=== PATIENT | female | born 1995 | race Hispanic/Latino ===

== ENCOUNTER 2017-12-04 13:43 | Observation (INO) | payer BC ==
[2017-12-04] MEDS ORDERED: ONDANSETRON 4 MG/2 ML VIAL IV PRN (14:09)
[2017-12-04] MEDS ORDERED: ACETAMINOPHEN 500 MG TAB PO PRN (14:09)
[2017-12-04] MEDS ORDERED: ALBUTEROL 2.5 MG/3 ML NEB SOL NEB PRN (14:09)
--- NOTE | 2017-12-04 14:46 | P.HP ---
Certification for Inpatient Patient admitted to: Observation With expected LOS: <2 Midnights Patient will require the following post-hospital care: None Practitioner: I am a practitioner with admitting privileges, knowledge of patient current condition, hospital course, and medical plan of care. Services: Services provided to patient in accordance with Admission requirements found in Title 42 Section 412.3 of the Code of Federal Regulations Patient History Date of Service: 12/04/17 Primary Care Provider: SHOOTER'S HELPER-Dr. House; ENT-Dr. Bangura Reason for admission: Abdominal pain, shortness of breath History of Present Illness: 22-year-old female presented the hospital after she was transferred from [facility] after she was found to have left pulmonary embolism. The patient reports that she start to have some abdominal pain about 5 a.m. this morning. It is mainly to the left flank. It radiated to the left lower chest wall. It was associated with some shortness of breath. She reported that previous Monday she had some pain similar to the right side. She thought it was gas. She took medication for this. It resolved. Patient did report some nausea. The patient came to the ER for further evaluation. The patient was seen at [facility]. A workup included CBC, BMP, urine which were unremarkable. A CT angiogram was done showing pulmonary embolism to the left side. Due to the nature of finding the patient was admitted for observation for further analysis. The patient was given Lovenox prior to coming to the hospital. When I evaluated the patient she was without any significant shortness of breath. No chest pain noted. She was without any nausea, vomiting. Patient reports a history of asthma and allergies. There is a family history of blood clots. She reports a grandmother on the maternal side had some. The patient has not done any extensive traveling. Traveling only to [place]. Patient does not smoke. She does use control medication. Allergies lemon Allergy (Mild, Verified 12/04/17 14:26) Nausea/Vomiting green tea Adverse Reaction (Verified 12/04/17 14:27) Nausea/Vomiting Home medications list reviewed: Yes Home Medications: Albuterol Sulfate [Proair Hfa] 3 puff IH BID 12/04/17 Azelastine/Fluticasone [Dymista Nasal [place]] 1 sprays BELLE DAILY 12/04/17 Beclomethasone Dipropionate [Qvar Redihaler] 1 puff IH BID 12/04/17 Norgestimate-Ethinyl Estradiol [Mononessa 28 Tablet] 1 tab PO DAILY 12/04/17 - Past Medical/Surgical History Has patient received pneumonia vaccine in the past: No Diabetic: No -: Asthma -: Seasonal allergies -: Eczema -: Obesity -: Nasal surgery -: Tonsillectomy Psychosocial/ Personal History: The patient is single. 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 She has no children. She has never been . - Family History Mother -: Other (see notes) (Grandmother had history of blood clots.) - Social History Smoking Status: Never smoker Alcohol use: Yes CD- Drugs: No Caffeine use: Yes Place of Residence: Home Review of Systems General: As per HPI Eyes: Unremarkable ENT: Unremarkable Respiratory: Shortness of Breath, As per HPI Cardiovascular: Unremarkable Gastrointestinal: Nausea, Abdominal Pain, As per HPI Genitourinary: Unremarkable Musculoskeletal: Back Pain, As per HPI Integumentary: Unremarkable Neurological: Unremarkable Lymphatics: Unremarkable Physical Examination - Vital Signs Temperature: 98.2 F Blood Pressure: 110/64 Pulse: 77 Respirations: 16 Pulse Ox (%): 96 - Physical Exam General: Alert, In no apparent distress, Oriented x3, Cooperative HEENT: Atraumatic, Normocephalic, PERRLA, Mucous membr. moist/pink Neck: Supple, No Thyromegaly Respiratory: Clear to auscultation bilaterally, Normal air movement Cardiovascular: Normal pulses, Regular rate/rhythm Gastrointestinal: Normal bowel sounds, Soft and benign, Non-distended, No ascites, No tenderness, No masses, No rebound, No guarding Musculoskeletal: No contractures, No erythema, No tenderness, No warmth Integumentary: No tenderness/swelling, No erythema, No warmth, No cyanosis Neurological: Normal speech, Normal strength at 5/5 x4 extr, Normal tone, Normal affect Lymphatics: No axilla or inguinal lymphadenopathy Assessment and Plan - Problems (Diagnosis) (1) Pulmonary embolism Current Visit: Yes Status: Acute Plan: CT scan showed left pulmonary embolism. Patient has been given Lovenox. Will continue with Lovenox. Will check echocardiogram. Will check lab for protein C and S, factor 5 Leiden, autoimmune disease. Will consult pulmonology to further assess. Patient will likely need Eliquis or Xarelto at discharge. Anticipate discharge tomorrow after workup has been done. Qualifiers: Pulmonary embolism type: other Chronicity: acute Acute cor pulmonale presence: without acute cor pulmonale Qualified Code(s): I26.99 - Other pulmonary embolism without acute cor pulmonale (2) Asthma Current Visit: Yes Status: Chronic Plan: Currently stable this time. Will provide medication. Qualifiers: Asthma severity: mild Asthma persistence: intermittent Asthma complication type: unspecified Qualified Code(s): J45.20 - Mild intermittent asthma, uncomplicated (3) GERD (gastroesophageal reflux disease) Current Visit: Yes Status: Suspected Plan: Will provide medication. Qualifiers: Esophagitis presence: esophagitis presence not specified Qualified Code(s) : K21.9 - Gastro-esophageal reflux disease without esophagitis (4) Obesity Current Visit: Yes Status: Chronic Plan: Will provide education on lifestyle modification Qualifiers: Obesity type: due to excess calories Obesity classification: adult class 1 (BMI 30 - 34.9) Serious obesity comorbidity presence: with serious comorbidity Body mass index: BMI 34.0-34.9 Qualified Code(s): E66.09 - Other obesity due to excess calories; Z68.34 - Body mass index (BMI) 34.0-34.9, adult; Z68.34 - Body mass index (BMI) 34.0-34.9, adult Discharge Plan: Home Plan to discharge in: 24 Hours - Advance Directives Does patient have a Living Will: No Does patient have a Durable POA for Healthcare: No - Code Status/Comfort Care Code Status Assessed: Yes Time Spent Managing Pts Care (In Minutes): 55
[2017-12-04] MEDS ORDERED: PNEUMOCOCCAL VACCINE 0.5 ML IMVAC ONE (15:00)
[2017-12-04] MEDS ORDERED: ENOXAPARIN 80 MG/0.8 ML SQ SCH (15:00)
[2017-12-04 15:06] LABS: Absolute Monocytes 0.5 K/uL (0.1-1.3); Absolute Neutrophil 5.7 K/uL (1.8-8.0); Basophils % 0.6 % (0-1.3); Eosinophils % 4.5 % (0-4.4); Hematocrit 38.4 % (36.0-45.0); Lymphocytes % 23.5 % (15.3-44.8); MCH 31.1 pg (27.0-35.0); MPV 7.8 fL (7.6-11.3); Monocytes % 5.3 % (3.3-12.3); RBC Red Blood Cell Count 4.27 M/uL (3.86-4.86)
[2017-12-04 15:08] VITALS: BMI 34.7
--- NOTE | 2017-12-04 16:06 | RAD REPORT ---
EXAM DESCRIPTION: RAD - Chest Pa And Lat (2 Views) - 12/04/2017 3:19 pm CLINICAL HISTORY: Shortness of breath, history of pulmonary embolism COMPARISON: None. TECHNIQUE: PA and lateral views of the chest were obtained. FINDINGS: The lungs are clear of failure, infiltrate or mass. No area of abnormally diminished lung parenchymal attenuation seen. Heart size is normal and central vasculature is within normal limits. No pleural effusion or pneumothorax seen. No acute bony finding noted. No aortic abnormality. IMPRESSION: No acute cardiopulmonary process.
[2017-12-04 16:10] LABS: CKMB Creatine Kinase MB 0.8 ng/ml (0.3-4.0)
[2017-12-04 16:12] LABS: ALT/SGPT 16 IU/L (10-60); AST/SGOT 17 IU/L (10-42); Albumin 3.9 g/dL (3.2-5.5); Alkaline Phosphatase 38 IU/L (42-121); BUN Blood Urea Nitrogen 9 mg/dL (6-20); Bicarbonate 24 mEq/L (21-31); Bilirubin Total 0.5 mg/dL (0.3-1.2); Glomerular Filtration Rate > 90 mL/min (=/>90); Glucose Level 82 mg/dL (65-120); Magnesium 1.8 mg/dL (1.8-2.5); Potassium 3.3 mEq/L (3.6-5.0); Protein, Total 6.7 g/dL (6.0-8.3); Sodium Level 136 mEq/L (135-145)
--- NOTE | 2017-12-04 16:43 | ECHO ---
HEIGHT: 5 ft 1 in WEIGHT: 184 lb 0 oz DATE OF STUDY: 12/04/[address]: Thiago Freeman DO 2-DIMENSIONAL: YES M.MODE: YES DOPPLER: YES COLOR FLOW: YES TDS: PORTABLE: DEFINITY: BUBBLE STUDY: DIAGNOSIS: PULMONARY EMBOLUS CARDIAC HISTORY: CATHERIZATION: NO SURGERY: NO PROSTHETIC VALVE: NO PACEMAKER: NO MEASUREMENTS (cm) DIASTOLIC (NORMALS) SYSTOLIC (NORMALS) IVSd 0.8 (0.6-1.2) LA Diam 2.7 (1.9-4.0) LVEF 59% LVIDd 4.1 (3.5-5.7) LVIDs 2.8 (2.0-3.5) %FS 31% LVPWd 0.9 (0.6-1.2) Ao Diam 2.6 (2.0-3.7) 2 DIMENSIONAL ASSESSMENT: RIGHT ATRIUM: NORMAL LEFT ATRIUM: NORMAL RIGHT VENTRICLE: NORMAL LEFT VENTRICLE: NORMAL TRICUSPID VALVE: NORMAL MITRAL VALVE: NORMAL PULMONIC VALVE: NORMAL AORTIC VALVE: NORMAL PERICARDIAL EFFUSION: NONE AORTIC ROOT: NORMAL LEFT VENTRICULAR WALL MOTION: NORMAL DOPPLER/COLOR FLOW: NORMAL COMMENTS: NORMAL 2-DIMENSIONAL ECHOCARDIOGRAM WITH DOPPLER. TECHNOLOGIST: WENDY NUÑEZ
[2017-12-04] MEDS ORDERED: MAGNESIUM SULFATE 1 gm IVPB 1 GM/100 ML BAG IV ONE (16:56)
[2017-12-04] MEDS ORDERED: HYDROCODONE/APAP 7.5/325 MG TAB PO PRN (17:24)
[2017-12-04] MEDS ORDERED: TRAMADOL HCL 50 MG TAB PO PRN (17:24)
[2017-12-04] MEDS ORDERED: POTASSIUM CL SA 10 MEQ TAB PO ONE (17:32)
[2017-12-04] MEDS ORDERED: NA CHLORIDE 0.9% 250 ML IV SCH (19:00)
[2017-12-04] MEDS: FAMOTIDINE 20 MG TAB PO SCH (20:51)
[2017-12-04] MEDS: DULERA 100/5 (MOMETASONE/FORMOTEROL) INHALER IH SCH (21:00)
[2017-12-04 21:41] LABS: Urine Appearance CLEAR; Urine Bilirubin NEGATIVE (NEG); Urine Blood NEGATIVE (NEG); Urine Color YELLOW; Urine Glucose NEGATIVE (NEG); Urine Protein NEGATIVE (NEG); Urine Urobilinogen 0.2 mg/dL (0.2-1.0); Urine pH 7.5 (5.0-7.0)
[2017-12-04 21:44] LABS: Urine Microscopic Reflex NO UMIC
[2017-12-04 22:45] LABS: CKMB Creatine Kinase MB 0.9 ng/ml (0.3-4.0)
[2017-12-05] MEDS ORDERED: POTASSIUM 25 MEQ EFFERV TAB PO ONE (01:30)
[2017-12-05 02:26] VITALS: O2SAT 98
[2017-12-05] MEDS ORDERED: ENOXAPARIN 80 MG/0.8 ML SQ SCH (06:00)
[2017-12-05 06:24] LABS: CKMB Creatine Kinase MB 0.6 ng/ml (0.3-4.0)
[2017-12-05 06:25] LABS: BUN Blood Urea Nitrogen 10 mg/dL (6-20); Bicarbonate 26 mEq/L (21-31); Glomerular Filtration Rate > 90 mL/min (=/>90); Glucose Level 88 mg/dL (65-120); HDL Cholesterol 43 mg/dL (29-89); LDL Cholesterol, Calculated 84 (<130); Potassium 4.2 mEq/L (3.6-5.0); Sodium Level 135 mEq/L (135-145)
--- NOTE | 2017-12-05 08:23 | P.CNS ---
Date of Consult: 12/05/17 Primary Care Provider: FORMING ROLL OPERATOR HEAVY DUTY-Dr. House; ENT-Dr. 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 she her pain got worse started complaining of some shortness of breath she had some an episode during a Easter tiny mid way she has some shortness of breath pain in the right side that resolved and about 24 hr apart from asthma THAT THERE IS NO OTHER SIGNIFICANT PAST MEDICAL HISTORY PATIENT WENT TO [facility] emergency room CT scan of the chest showed a very small filling defect noted in 1 of the branches of the left lower lobe suspicious for pulmonary embolism no other filling defects demonstrated CT scan of the abdomen was unremarkable patient is on control pills Allergies lemon Allergy (Mild, Verified 12/04/17 14:26) Nausea/Vomiting green tea Adverse Reaction (Verified 12/04/17 14:27) Nausea/Vomiting Home Medications: Albuterol Sulfate [Proair Hfa] 2 puff IH BID 12/04/17 Azelastine/Fluticasone [Dymista Nasal [place]] 1 sprays BELLE DAILY 12/04/17 Beclomethasone Dipropionate [Qvar Redihaler] 1 puff IH BID 12/04/17 Norgestimate-Ethinyl Estradiol [Mononessa 28 Tablet] 1 tab PO DAILY 12/04/17 Albuterol Sulfate [Proair Hfa] 2 puff IH Q6H PRN 12/05/17 - Past Medical/Surgical History Diabetic: No -: Asthma -: Seasonal allergies -: Eczema -: Obesity -: Nasal surgery -: Tonsillectomy Psychosocial/ Personal History: The patient is single. 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 She has no children. She has never been . - Family History Mother Medical History: Other (see notes) (Grandmother had history of blood clots.) - Social History Alcohol use: Yes CD- Drugs: No Caffeine use: Yes Place of Residence: Home Review of Systems 10-point ROS is otherwise unremarkable Physical Examination Temp Pulse Resp BP Pulse Ox 97.6 F 77 17 113/53 L 96 12/05/17 04:00 12/05/17 04:00 12/05/17 04:00 12/05/17 04:00 12/05/17 04:00 General: Alert, Oriented x3 Neck: Supple Respiratory: Clear to auscultation bilaterally Cardiovascular: No edema, Regular rate/rhythm Gastrointestinal: Normal bowel sounds, Soft and benign Laboratory Data (last 24 hrs) 12/05/17 05:28: Troponin I < 0.03 12/05/17 05:28: Sodium 135, Potassium 4.2, BUN 10, Creatinine 0.66, Glucose 88, Magnesium 2.0, Triglycerides 122, Cholesterol 151, HDL Cholesterol 43, Cholesterol/HDL Ratio 3.51 12/04/17 21:54: Potassium 3.9 12/04/17 21:54: Troponin I 0.05 H 12/04/17 14:50: Sodium 136, Potassium 3.3 L, BUN 9, Creatinine 0.58, Glucose 82 , Magnesium 1.8, Total Bilirubin 0.5, AST 17, ALT 16, Alkaline Phosphatase 38 L 12/04/17 14:50: WBC 8.6, Hgb 13.3, Hct 38.4, Plt Count 346 12/04/17 14:50: Troponin I < 0.03 - Problems (1) Pulmonary embolism Current Visit: Yes Status: Acute Plan: Patient is 22 years of age admitted with some shortness of breath chest discomfort lower abdominal discomfort this is a suspicion of pulmonary embolism on the left side small filling defect is noted this scan he as indeterminate patient has normal echo 0 labs vital signs are all stable extensive workup has been ordered I have advised the patient that the include control pills would be a contraindication I recommended this time 3 months of anticoagulation patient can be discharged home on Eliquis 10 mg twice a day for for 7 days then convert to 5 mg twice a day total duration 3 months and and probably stop she needs to follow-up with her guitar technician regarding control Qualifiers: Pulmonary embolism type: other Chronicity: acute Acute cor pulmonale presence: without acute cor pulmonale Qualified Code(s): I26.99 - Other pulmonary embolism without acute cor pulmonale (2) Asthma Current Visit: Yes Status: Chronic Plan: Patient has a history of mild intermittent asthma she has been on Q HUSSAIN since a child which has been refill by ENT doctor it appears to be well controlled she denies any nocturnal symptoms and takes the medication twice a day no recent exacerbations this will all need to be reviewed as an outpatient Qualifiers: Asthma severity: mild Asthma persistence: intermittent Asthma complication type: unspecified Qualified Code(s): J45.20 - Mild intermittent asthma, uncomplicated
[2017-12-05] MEDS: FAMOTIDINE 20 MG TAB PO SCH (08:40)
[2017-12-05] MEDS: DULERA 100/5 (MOMETASONE/FORMOTEROL) INHALER IH SCH (09:00)
[2017-12-05 09:06] VITALS: BP 109/66; TEMP 97.9
--- NOTE | 2017-12-05 10:00 | P.DS ---
Admission Date: 12/04/17 Discharge Date: 12/05/17 Primary Care Provider: PROFESSOR OF THEATRE-Dr. House; ENT-Dr. Bangura Disposition: ROUTINE DISCHARGE Discharge Condition: GOOD Reason for Admission: Pulmonary embolus Consultations: Pulmonology-Dr. Velez Procedures: Echocardiogram: Ejection fraction 59% otherwise unremarkable. CT scan: Small filling defect to the left lower lobe branch suspicious for pulmonary embolism. - Problems (1) Pulmonary embolism Onset Date: 12/05/17 Current Visit: Yes Status: Acute Qualifiers: Pulmonary embolism type: other Chronicity: acute Acute cor pulmonale presence: without acute cor pulmonale Qualified Code(s): I26.99 - Other pulmonary embolism without acute cor pulmonale (2) Asthma Onset Date: 12/05/17 Current Visit: Yes Status: Chronic Qualifiers: Asthma severity: mild Asthma persistence: intermittent Asthma complication type: unspecified Qualified Code(s): J45.20 - Mild intermittent asthma, uncomplicated (3) GERD (gastroesophageal reflux disease) Onset Date: 12/05/17 Current Visit: Yes Status: Suspected Qualifiers: Esophagitis presence: esophagitis presence not specified Qualified Code(s) : K21.9 - Gastro-esophageal reflux disease without esophagitis (4) Obesity Onset Date: 12/05/17 Current Visit: Yes Status: Chronic Qualifiers: Obesity type: due to excess calories Obesity classification: adult class 1 (BMI 30 - 34.9) Serious obesity comorbidity presence: with serious comorbidity Body mass index: BMI 34.0-34.9 Qualified Code(s): E66.09 - Other obesity due to excess calories; Z68.34 - Body mass index (BMI) 34.0-34.9, adult; Z68.34 - Body mass index (BMI) 34.0-34.9, adult Brief History of Present Illness: 22-year-old female presented the hospital after she was transferred from [facility] after she was found to have left pulmonary embolism. The patient reports that she start to have some abdominal pain about 5 a.m. this morning. It is mainly to the left flank. It radiated to the left lower chest wall. It was associated with some shortness of breath. She reported that previous Monday she had some pain similar to the right side. She thought it was gas. She took medication for this. It resolved. Patient did report some nausea. The patient came to the ER for further evaluation. The patient was seen at [place] [facility]. A workup included CBC, BMP, urine which were unremarkable. A CT angiogram was done showing pulmonary embolism to the left side. Due to the nature of finding the patient was admitted for observation for further analysis. The patient was given Lovenox prior to coming to the hospital. When I evaluated the patient she was without any significant shortness of breath. No chest pain noted. She was without any nausea, vomiting. Patient reports a history of asthma and allergies. There is a family history of blood clots. She reports a grandmother on the maternal side had some. The patient has not done any extensive traveling. Traveling only to [place]. Patient does not smoke. She does use control medication. Hospital Course: Patient found to have pulmonary embolism. CT scan showed small filling defect to the left lower lobe branch. Patient admitted for treatment. Patient evaluated by pulmonology. Echocardiogram unremarkable. At discharge patient will continue with Eliquis 10 mg 1 pill twice daily for 7 days then 5 mg 1 pill twice daily for 3 months. Recommendation is for the patient follow up with pulmonology in 2-4 weeks to monitor her care. Recommendation is to discontinue her control medication. A D-dimer will be obtained to get a baseline level. Recommendation is to recheck lab-CBC in 2-4 weeks to monitor progress. Patient has asthma. She may continue with her medication. Patient has seasonal allergies. She may continue with her medication. Patient will need a follow up with gynecology to address her control needs. Her control medication has been discontinued. Patient will need to use another form of control. Suspect patient may have underlying GERD. Patient may take Nexium over the counter if needed. Vital Signs/Physical Exam: Temp Pulse Resp BP Pulse Ox 97.9 F 68 16 109/66 97 12/05/17 08:00 12/05/17 08:00 12/05/17 08:00 12/05/17 08:00 12/05/17 08:00 General: Alert, In no apparent distress, Oriented x3, Cooperative HEENT: Atraumatic, Mucous membr. moist/pink Neck: Supple, No Thyromegaly Respiratory: Clear to auscultation bilaterally, Normal air movement Cardiovascular: Normal pulses, Regular rate/rhythm Gastrointestinal: Normal bowel sounds, Soft and benign, Non-distended, No masses , No rebound, No guarding Musculoskeletal: No erythema, No tenderness, No warmth Integumentary: No erythema, No warmth, No cyanosis Neurological: Normal speech, Normal strength at 5/5 x4 extr, Normal tone, Normal affect Laboratory Data at Discharge: WBC 8.6 K/uL (4.3-10.9) 12/04/17 14:50 Hgb 13.3 g/dL (12.0-15.0) 12/04/17 14:50 Hct 38.4 % (36.0-45.0) 12/04/17 14:50 Plt Count 346 K/uL (152-406) 12/04/17 14:50 Sodium 135 mEq/L (135-145) 12/05/17 05:28 Potassium 4.2 mEq/L (3.6-5.0) 12/05/17 05:28 BUN 10 mg/dL (6-20) 12/05/17 05:28 Creatinine 0.66 mg/dL (0.44-1.00) 12/05/17 05:28 Glucose 88 mg/dL (65-120) 12/05/17 05:28 Magnesium 2.0 mg/dL (1.8-2.5) 12/05/17 05:28 Total Bilirubin 0.5 mg/dL (0.3-1.2) 12/04/17 14:50 AST 17 IU/L (10-42) 12/04/17 14:50 ALT 16 IU/L (10-60) 12/04/17 14:50 Alkaline Phosphatase 38 IU/L (42-121) L 12/04/17 14:50 Troponin I < 0.03 ng/mL (<0.03) 12/05/17 05:28 Triglycerides 122 mg/dL (35-160) 12/05/17 05:28 Cholesterol 151 mg/dL (<200) 12/05/17 05:28 HDL Cholesterol 43 mg/dL (29-89) 12/05/17 05:28 Cholesterol/HDL Ratio 3.51 12/05/17 05:28 Home Medications: Albuterol Sulfate [Proair Hfa] 2 puff IH BID 12/04/17 Azelastine/Fluticasone [Dymista Nasal [place]] 1 sprays BELLE DAILY 12/04/17 Beclomethasone Dipropionate [Qvar Redihaler] 1 puff IH BID 12/04/17 Albuterol Sulfate [Proair Hfa] 2 puff IH Q6H PRN 12/05/17 Apixaban [Eliquis] 5 mg PO SEECOM #70 tablet 12/05/17 New Medications: Apixaban [Eliquis] 5 mg PO SEECOM #70 tablet Patient Discharge Instructions: 1. Patient will need to follow up with her PCP in 1 week to follow up this hospitalization. 2. Patient found to have pulmonary embolism. Patient evaluated by pulmonology. Echocardiogram unremarkable. At discharge patient will continue with Eliquis 10 mg 1 pill twice daily for 7 days then 5 mg 1 pill twice daily for 3 months. Recommendation is for the patient follow up with pulmonology in 2-4 weeks to monitor her care. Recommendation is to discontinue her control medication. Recommendation is to recheck CBC in 2-4 weeks to monitor progress. 3. Patient has asthma. She may continue with her medication. 4. Patient has seasonal allergies. She may continue with her medication. 5. Patient will need a follow up with gynecology to address her control needs. Her control medication has been discontinued. Patient will need to use another form of control. 6. Patient may have underlying GERD. Patient may take [id number] Nexium to be use as needed. Diet: AHA Activity: Ad whitney Time spent managing pt's care (in minutes): 55
[2017-12-06 12:25] LABS: Protein C Antigen 103 % (70-140)
[2017-12-07 04:18] LABS: Anti-Cardiolipin IgA Antibody <11 APL (<=11)
[2017-12-07 13:26] LABS: Prothrombin Gene Analysis Test REPORT
== END 2017-12-05 12:36 | disposition home or self-care (01) ==
LOC: 4TH 13:52
PROVIDERS: ADMIT Family Medicine; ATTEND Family Medicine
DX: I74.9 Embolism and thrombosis of unspecified artery (principal); J45.909 Unspecified asthma, uncomplicated; E66.9 Obesity, unspecified; Z68.34 Body mass index [BMI] 34.0-34.9, adult; J30.2 Other seasonal allergic rhinitis
CPT/HCPCS: 36415; 71046; 80048; 80053; 80061; 81003; 81025; 81240; 81241; 82550; 82553; 83735; 84132; 84439; 84443; 84484; 85025; 85300; 85301; 85302; 85305; 85306; 85379; 86038; 86147; 86225; 93306; G0378; J1650; J3475; J7606

== ENCOUNTER 2017-12-13 01:07 | Emergency (ER) | payer BC ==
[2017-12-13] MEDS ORDERED: NA CHLORIDE 0.9% 1,000 ML ONE (02:49)
[2017-12-13 02:54] LABS: Absolute Lymphocytes (CBC) 1.8 K/uL (0.7-4.9); Absolute Monocytes 0.7 K/uL (0.1-1.3); Absolute Neutrophil 4.9 K/uL (1.8-8.0); Hematocrit 36.5 % (36.0-45.0); Lymphocytes % 23.2 % (15.3-44.8); MCH 31.4 pg (27.0-35.0); MCV 90.5 fL (80-100); MPV 7.9 fL (7.6-11.3); Monocytes % 9.1 % (3.3-12.3); Protime INR 1.43; RBC Red Blood Cell Count 4.03 M/uL (3.86-4.86)
[2017-12-13 03:03] LABS: Bicarbonate 29 mEq/L (21-31); Glucose Level 97 mg/dL (65-120); Potassium 3.6 mEq/L (3.6-5.0); Sodium Level 139 mEq/L (135-145)
[2017-12-13 03:09] LABS: ALT/SGPT 17 IU/L (10-60); AST/SGOT 14 IU/L (10-42); Albumin 3.9 g/dL (3.2-5.5); Alkaline Phosphatase 44 IU/L (42-121); BUN Blood Urea Nitrogen 10 mg/dL (6-20); Bilirubin Direct 0.1 mg/dL (0-0.2); Bilirubin Total 0.6 mg/dL (0.3-1.2); Creatine Phosphokinase 40 IU/L (22-269); Glomerular Filtration Rate > 90 mL/min (=/>90); Magnesium 1.7 mg/dL (1.8-2.5); Protein, Total 7.1 g/dL (6.0-8.3)
[2017-12-13 03:12] LABS: CKMB Creatine Kinase MB 0.7 ng/ml (0.3-4.0)
[2017-12-13 03:26] LABS: Urine Glucose NEGATIVE (NEG)
[2017-12-13 03:27] LABS: Urine Blood NEGATIVE (NEG); Urine Protein NEGATIVE (NEG)
--- NOTE | 2017-12-13 04:16 | EDPHYS ---
Physician Documentation [facility] Name: Chel Martel Age: 22 yrs Sex: Female : 1995 Arrival Date: 12/13/2017 Time: 01:12 Bed 16 Private MD: ED Physician Maximo Worley HPI: 12/13 02:36 This 22 yrs old Female presents to ER via Ambulatory with complaints of ember Headache, Chest Pain. 02:36 The patient complains of pain to the forehead, left frontal area and right frontal ember area. The patient describes the headache as aching. 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 - Social history:: Smoking status: Patient/guardian denies using tobacco. - Family history:: not pertinent. ROS: 02:36 Constitutional: Negative for fever, chills, and weight loss, Eyes: Negative for injury, ember pain, redness, and discharge, ENT: Negative for injury, pain, and discharge, Neck: Negative for injury, pain, and swelling, Cardiovascular: Negative for chest pain, palpitations, and edema, Abdomen/GI: Negative for abdominal pain, nausea, vomiting, diarrhea, and constipation, Back: Negative for injury and pain, : Negative for injury, bleeding, discharge, and swelling, MS/Extremity: Negative for injury and deformity, Skin: Negative for injury, rash, and discoloration, Psych: Negative for depression, anxiety, suicide ideation, homicidal ideation, and hallucinations, Allergy/Immunology: Negative for hives, rash, and allergies, Endocrine: Negative for neck swelling, polydipsia, polyuria, polyphagia, and marked weight changes, Hematologic/Lymphatic: Negative for swollen nodes, abnormal bleeding, and unusual bruising. 02:36 Respiratory: Positive for cough, shortness of breath, at rest. 02:36 MS/extremity: Negative for acute changes. Exam: 02:36 Constitutional: This is a well developed, well nourished patient who is awake, alert, ember and in no acute distress. Head/Face: Normocephalic, atraumatic. Eyes: Pupils equal round and reactive to light, extra-ocular motions intact. Lids and lashes normal. Conjunctiva and sclera are non-icteric and not injected. Cornea within normal limits. Periorbital areas with no swelling, redness, or edema. ENT: Nares patent. No nasal discharge, no septal abnormalities noted. Tympanic membranes are normal and external auditory canals are clear. Oropharynx with no redness, swelling, or masses, exudates, or evidence of obstruction, uvula midline. Mucous membranes moist. Neck: Trachea midline, no thyromegaly or masses palpated, and no cervical lymphadenopathy. Supple, full range of motion without nuchal rigidity, or vertebral point tenderness. No Meningismus. Chest/axilla: Normal chest wall appearance and motion. Nontender with no deformity. No lesions are appreciated. Cardiovascular: Regular rate and rhythm with a normal S1 and S2. No gallops, murmurs, or rubs. Normal PMI, no JVD. No pulse deficits. Respiratory: Lungs have equal breath sounds bilaterally, clear to auscultation and percussion. No rales, rhonchi or wheezes noted. No increased work of breathing, no retractions or nasal flaring. Abdomen/GI: Soft, non-tender, with normal bowel sounds. No distension or tympany. No guarding or rebound. No evidence of tenderness throughout. Back: No spinal tenderness. No costovertebral tenderness. Full range of motion. Pelvic Exam: Normal external genitalia. Speculum exam with closed cervical os, no discharge or bleeding noted. Bimanual exam with normal adnexa, no adnexal or cervical motion tenderness. Normal uterus. Female : Normal external genitalia. Skin: Warm, dry with normal turgor. Normal color with no rashes, no lesions, and no evidence of cellulitis. MS/ Extremity: Pulses equal, no cyanosis. Neurovascular intact. Full, normal range of motion. Neuro: Awake and alert, GCS 15, oriented to person, place, time, and situation. Cranial nerves II-XII grossly intact. Motor strength 5/5 in all extremities. Sensory grossly intact. Cerebellar exam normal. Normal gait. Psych: Awake, alert, with orientation to person, place and time. Behavior, mood, and affect are within normal limits. Vital Signs: 01:40 BP 123 / 78; Pulse 89; Resp 19 S; Temp 97.9(O); Pulse Ox 100% on R/A; Weight 83.46 kg jd3 (R); Height 5 ft. 1 in. (154.94 cm) (R); Pain 5/10; 03:37 BP 118 / 74; Pulse 73; Resp 17 S; Pulse Ox 98% on R/A; jd3 05:05 BP 120 / 76; Pulse 77; Resp 18 S; Pulse Ox 98% on R/A; Pain 0/10; jd3 05:52 BP 118 / 73; Pulse 77; Resp 19 S; Pulse Ox 98% on R/A; Pain 0/10; jd3 01:40 Body Mass Index 34.77 (83.46 kg, 154.94 cm) j MDM: 02:33 Patient medically screened. [facility] 02:37 Data reviewed: vital signs, nurses notes, lab test result(s), EKG, radiologic studies, ember CT scan. 12/13 02:23 Order name: Basic Metabolic Panel; Complete Time: 04:09 [facility] 12/13 02:23 Order name: BNP; Complete Time: 04:09 [facility] 12/13 02:23 Order name: CBC with Diff; Complete Time: 04:09 [facility] 12/13 02:23 Order name: Ckmb; Complete Time: 04:09 [facility] 12/13 02:23 Order name: CPK; Complete Time: 04:09 [facility] 12/13 02:23 Order name: LFT's; Complete Time: 04:09 [facility] 12/13 02:23 Order name: Magnesium; Complete Time: 04:09 [facility] 12/13 02:23 Order name: PT-INR; Complete Time: 04:09 [facility] 12/13 02:23 Order name: Ptt, Activated; Complete Time: 04:09 [facility] 12/13 02:23 Order name: Troponin (emerg Dept Use Only); Complete Time: 04:09 [facility] 12/13 02:23 Order name: XRAY Chest (1 view) [facility] 12/13 02:23 Order name: CT Chest For PE Angio [facility] 12/13 03:00 Order name: Urine Dipstick--Ancillary (enter results); Complete Time: 04:09 em1 04/18 03:00 Order name: Urine --Ancillary (enter results); Complete Time: 04:09 [facility] 12/13 02:23 Order name: Urine Test (obtain specimen); Complete Time: 02:58 [facility] 12/13 02:23 Order name: EKG; Complete Time: 02:23 d3 12/13 02:23 Order name: Cardiac monitoring; Complete Time: 02:34 [facility] 12/13 02:23 Order name: EKG - Nurse/Tech; Complete Time: 02:34 d3 12/13 02:23 Order name: IV Saline Lock; Complete Time: 02:47 jd3 12/13 02:23 Order name: Labs collected and sent; Complete Time: 02:47 [facility] 12/13 02:23 Order name: O2 Per Protocol; Complete Time: 02:34 d3 12/13 02:23 Order name: O2 Sat Monitoring; Complete Time: 02:34 [facility] 12/13 02:23 Order name: Urine Dipstick-Ancillary (obtain specimen); Complete Time: 02:58 [facility] 12/13 02:38 Order name: CT Head Brain wo Cont ember Administered Medications: 02:56 Drug: NS 0.9% 1000 ml Route: IV; Rate: 1 bolus; Site: left antecubital; [facility] 06:10 Follow up: Response: No adverse reaction; IV Status: Completed infusion; IV Intake: jd3 1000ml 05:04 Drug: Magnesium Sulfate 1 grams Route: IVPB; Infused Over: 1 hrs; Site: left [facility] antecubital; 06:09 Follow up: Response: No adverse reaction; IV Status: Completed infusion j Disposition: 12/13/17 04:15 Discharged to Home. Impression: Chest pain, unspecified, Pulmonary embolism, Pulmonary embolism without acute cor pulmonale. - Condition is Stable. - Discharge Instructions: Nonspecific Chest Pain, Electrocardiography, Nonspecific Chest Pain, [id number]. - Prescriptions for Eliquis 5 mg Oral tablet - take 1 tablet by ORAL route 2 times per day; 30 tablet. Tylenol- Codeine #3 300-30 mg Oral Tablet - take 2 tablets by ORAL route every 6 hours As needed; 20 tablet. - Medication Reconciliation Form, Thank You Letter, Antibiotic Education, Prescription Opioid Use form. - Follow up: Private Physician; When: 2 - 3 days; Reason: Recheck today's complaints, Continuance of care, Re-evaluation by your physician. Follow up: Derrick Velez MD; When: 2 - 3 days; Reason: Recheck today's complaints, Continuance of care, Re-evaluation by your physician. - Problem is new. - Symptoms have improved. Signatures: Dispatcher [employer] Maximo Monaco MD MD cha Davies, Jonathon RN RN jd3
--- NOTE | 2017-12-13 04:16 | ER ---
Nurse's Notes [facility] Name: Chel Martel Age: 22 yrs Sex: Female : 1995 Arrival Date: 12/13/2017 Time: 01:12 Bed 16 Private MD: Diagnosis: Chest pain, unspecified;Pulmonary embolism;Pulmonary embolism without acute cor pulmonale Presentation: 12/13 01:33 Presenting complaint: Patient states: "I was diagnosed with a PE last week and was jd3 having chest pain, light handedness, headaches, and left arm/hand pain with shortness of breath today". Transition of care: patient was not received from another setting of care. Onset of symptoms was December 13, 2017. Initial Sepsis Screen: Does the patient meet any 2 criteria? No. Patient's initial sepsis screen is negative. Does the patient have a suspected source of infection? No. Patient's initial sepsis screen is negative. Care prior to arrival: None. 01:33 Method Of Arrival: Ambulatory jd3 01:33 Acuity: RENATA 3 jd3 Triage Assessment: 01:44 Headache History: Denies prior headaches. General: Appears in no apparent distress. jd3 uncomfortable, Behavior is cooperative, appropriate for age, anxious. Pain: Pain began 1 day ago. 01:45 Pain: Also complains of no other associated symptoms. 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 - Social history:: Smoking status: Patient/guardian denies using tobacco. - Family history:: not pertinent. Screenin:44 Abuse screen: Denies threats or abuse. Nutritional screening: No deficits noted. jd3 Tuberculosis screening: No symptoms or risk factors identified. Fall Risk None identified. Assessment: 01:42 General: Appears in no apparent distress. uncomfortable, Behavior is cooperative, jd3 appropriate for age, anxious. Pain: Complains of pain in head, chest and left arm Pain currently is 5 out of 10 on a pain scale. Quality of pain is described as aching, crampy. Neuro: Level of Consciousness is awake, alert, obeys commands, Oriented to person, place, time, situation. Cardiovascular: Heart tones S1 S2 present Capillary refill < 3 seconds Patient's skin is warm and dry. Respiratory: Airway is patent Respiratory effort is even, unlabored, Respiratory pattern is regular, symmetrical, Breath sounds are clear bilaterally. GI: Abdomen is round Bowel sounds present X 4 quads. Abd is soft and non tender X 4 quads. Patient currently denies diarrhea, nausea, vomiting. : No signs and/or symptoms were reported regarding the genitourinary system. EENT: No signs and/or symptoms were reported regarding the EENT system. Derm: Skin is intact, Skin is diaphoretic, Skin is black, Skin temperature is warm. Musculoskeletal: Circulation, motion, and sensation intact. Range of motion: intact in all extremities. 02:30 Reassessment: Patient appears in no apparent distress at this time. Patient and/or jd3 family updated on plan of care and expected duration. Pain level reassessed. Patient is alert, oriented x 3, equal unlabored respirations, skin warm/dry/pink. 03:37 Reassessment: Patient appears in no apparent distress at this time. Patient and/or jd3 family updated on plan of care and expected duration. Pain level reassessed. Patient is alert, oriented x 3, equal unlabored respirations, skin warm/dry/pink. 05:05 Reassessment: Patient appears in no apparent distress at this time. Patient and/or jd3 family updated on plan of care and expected duration. Pain level reassessed. Patient is alert, oriented x 3, equal unlabored respirations, skin warm/dry/pink. 05:53 Reassessment: Patient appears in no apparent distress at this time. Patient and/or jd3 family updated on plan of care and expected duration. Pain level reassessed. Patient is alert, oriented x 3, equal unlabored respirations, skin warm/dry/pink. Patient states feeling better. 06:08 Reassessment: Patient appears in no apparent distress at this time. Patient and/or jd3 family updated on plan of care and expected duration. Pain level reassessed. Patient is alert, oriented x 3, equal unlabored respirations, skin warm/dry/pink. pt reported understanding of discharge instructions, even and steady gait upon discharge. Vital Signs: 01:40 BP 123 / 78; Pulse 89; Resp 19 S; Temp 97.9(O); Pulse Ox 100% on R/A; Weight 83.46 kg jd3 (R); Height 5 ft. 1 in. (154.94 cm) (R); Pain 5/10; 03:37 BP 118 / 74; Pulse 73; Resp 17 S; Pulse Ox 98% on R/A; jd3 05:05 BP 120 / 76; Pulse 77; Resp 18 S; Pulse Ox 98% on R/A; Pain 0/10; jd3 05:52 BP 118 / 73; Pulse 77; Resp 19 S; Pulse Ox 98% on R/A; Pain 0/10; jd3 01:40 Body Mass Index 34.77 (83.46 kg, 154.94 cm) jd3 ED Course: 01:12 Patient arrived in ED. al2 01:33 Fabricio Mccabe, RN is Primary Nurse. jd3 01:35 Triage completed. jd3 01:42 Arm band placed on. jd3 01:44 Patient has correct armband on for positive identification. Bed in low position. Call j light in reach. Side rails up X 1. Adult w/ patient. 02:33 Maximo Worley MD is Attending Physician. ember 02:38 Initial lab(s) drawn, by me, sent to lab. Inserted saline lock: 20 gauge in left aa1 antecubital area, using aseptic technique. Blood collected. 02:51 X-ray completed. Portable x-ray completed in exam room. Patient tolerated procedure kw well. 02:52 XRAY Chest (1 view) In Process Unspecified. EDMS 03:37 CT Head Brain wo Cont In Process Unspecified. EDMS 03:45 CT Chest For PE Angio In Process Unspecified. EDMS 04:14 Derrick eVlez MD is Referral Physician. ember 05:53 No provider procedures requiring assistance completed. jd3 06:08 IV discontinued, intact, bleeding controlled, No redness/swelling at site. Pressure jd3 dressing applied. Administered Medications: 02:56 Drug: NS 0.9% 1000 ml Route: IV; Rate: 1 bolus; Site: left antecubital; jd3 06:10 Follow up: Response: No adverse reaction; IV Status: Completed infusion; IV Intake: jd3 1000ml 05:04 Drug: Magnesium Sulfate 1 grams Route: IVPB; Infused Over: 1 hrs; Site: left [facility] antecubital; 06:09 Follow up: Response: No adverse reaction; IV Status: Completed infusion jd3 Intake: 06:10 IV: 1000ml; Total: 1000ml. jd3 Outcome: 04:15 Discharge ordered by MD. pa 05:53 Condition: stable jd3 05:53 Discharge instructions given to patient, friend, Instructed on discharge instructions, follow up and referral plans. medication usage, Demonstrated understanding of instructions, follow-up care, medications, Prescriptions given X 2. 06:08 Discharged to home ambulatory, with friend. jd3 06:10 Patient left the ED. jd3 Signatures: Dispatcher [employer] EDPaty Carter, RN RN [id number] Maximo Worley MD MD cha Whitley, Fabricio Ramos RN RN jd3 Clementina Varela
[2017-12-13] MEDS ORDERED: MAGNESIUM SULFATE 1 gm IVPB 1 GM/100 ML BAG IV ONE (04:58)
[2017-12-13 06:16] VITALS: TEMP 97.9
[2017-12-13 06:17] VITALS: O2SAT 98
[2017-12-13 06:20] VITALS: BP 118/73
--- NOTE | 2017-12-13 07:27 | EKG ---
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
--- NOTE | 2017-12-13 08:59 | RAD REPORT ---
EXAM DESCRIPTION: RAD - Chest Single View - 12/13/2017 2:55 am CLINICAL HISTORY: Chest pain. COMPARISON: 12/04/2017 FINDINGS: Portable technique limits examination quality. The lungs are grossly clear. The heart is normal in size. No displaced fractures. IMPRESSION: No acute intrathoracic process suspected.
--- NOTE | 2017-12-13 09:00 | RAD REPORT ---
EXAM DESCRIPTION: CT - Head Brain Wo Cont - 12/13/2017 4:30 am CLINICAL HISTORY: Headache COMPARISON: None. TECHNIQUE: All CT scans are performed using dose optimization technique as appropriate and may inclu de automated exposure control or mA/KV adjustment according to patient size. FINDINGS: No intracranial hemorrhage, hydrocephalus or extra-axial fluid collection.No areas of brai n edema or evidence of midline shift. The paranasal sinuses and mastoids are clear. The calvarium is intact. IMPRESSION: No acute intracranial abnormality.
--- NOTE | 2017-12-13 09:01 | RAD REPORT ---
EXAM DESCRIPTION: CT - Chest For Pe Angio - 12/13/2017 6:22 am CLINICAL HISTORY: Chest pain. COMPARISON: None. TECHNIQUE: CT angiogram of the pulmonary arteries was performed with MIP. All CT scans are performed using dose optimization technique as appropriate and may include automated exposure control or mA/KV adjustment according to patient size. FINDINGS: No evidence of pulmonary thromboembolism. No acute aortic finding demonstrated. The lungs are clear. No significant pericardial or pleural fluid. No concerning bony finding. Mild fatty liver. IMPRESSION: No evidence of pulmonary thromboembolism. No acute lung findings.
== END 2017-12-13 06:10 | disposition home or self-care (01) ==
LOC: ER 01:07
DX: I26.99 Other pulmonary embolism without acute cor pulmonale (principal); J45.909 Unspecified asthma, uncomplicated
CPT/HCPCS: 36415; 70450; 71045; 71275; 80048; 80076; 81003; 81025; 82550; 82553; 83735; 83880; 84484; 85025; 85610; 85730; 93005; 96361; 96365; 99284; J3475; J7030; Q9967